=== PATIENT | female | born 2000 | race Two or more races ===

== ENCOUNTER 2024-06-14 16:10 | Emergency (ER) | payer MEDICAID, SELFPAY ==
[2024-06-14 16:17] VITALS: BP 117/84; PULSE 70; RESP 18; TEMP 36.6; O2SAT 98
--- NOTE | 2024-06-14 16:28 | EDNOTE_ITS ---
ED General RME/HPI General Chief complaint: Suicidal Stated complaint: MENTAL EVAL Time Seen by Provider: 06/14/24 16:24 Arrival date/time: 06/14/24 16:10 CC: Suicidal ideation with attempt. HPI patient has been suicidal for weeks, an attempt with cutting her arm x 2. These are partial-thickness lacerations to her left forearm. Patient has a significant history of depression. Seen by psychiatrist. Patient denies physical pain no other complaints at this time. Related Data Previous Rx's ?Medication ?Instructions ?Recorded cephalexin 500 mg capsule 500 mg PO QID #28 caps 05/20 acetaminophen-caffeine 500 mg-65 1 tab PO Q8H PRN pain #30 tabs 10/13/23 mg tablet (Excedrin Tension Headache) docusate sodium 100 mg capsule 100 mg PO BID #30 caps 12/17/23 (Colace) hydrocortisone acetate 25 mg 25 mg DC QDAY #24 ea 12/06 03/31 rectal suppository (Anusol-HC) Allergies Allergy/AdvReac Type Severity Reaction Status Date / Time acetaminophen (From Tylenol) Allergy Mild Vomiting Verified 10/20/20 18:10 quetiapine (From Seroquel) Allergy Mild Vomiting Verified 08/09/23 12:11 Review of Systems Review of Systems Narrative Review of Systems: GEN: No fever, no chills, no weight loss EYES: No discharge, no visual changes, no pain HEENT: No ear pain, no congestion, no sore throat PULM: No shortness of breath, no cough, no congestion CV: No chest pain, no dyspnea on exertion, no palpitations GI: No nausea, no vomiting, no diarrhea, no pain, no constipation : No frequency, no urgency, no dysuria MUSC/SKEL: No joint pain, no back pain SKIN: No rash PSYCH: + depression,+ suicidal ideation with attempt HEME/LYMPH: No easy bleeding or bruising tendencies NEURO: No weakness, no headache Past Medical History Past Medical History CARDIAC: Negative Cardiac Disorders or Congestive Heart Failure RESPIRATORY: Negative Chronic Obstructive Pulmonary Disease (COPD) or Asthma GENITOURINARY: Negative Renal Disease ENDOCRINE: Negative Diabetes Mellitus Type 1 or Diabetes Mellitus Type 2 HEMATOLOGIC: Negative Sickle Cell Disease PSYCHO/SOCIAL: Positive Schizophrenia and Self-Mutilation Social History SMOKING STATUS: Never smoker ED Exam Narrative Physical exam: [General: Not in any acute distress, direct eye contact full sentences nondistracted animated. Head normocephalic HEENT: Within acceptable limits Neck is supple nontender Chest equal chest rise nontender to palpation Respiratory: Clear to auscultation no wheezes crackles or rubs CV: Rate rhythm is regular no murmurs rubs or clicks Abdomen is distended secondary to body habitus soft nontender no masses positive bowel sounds all 4 quadrants Back: No CVA tenderness no spinous process tenderness from cervical spine thoracic and lumbar spine Skin: 2 parallel partial-thickness abrasions to the left forearm. No open bleeding surrounding erythema or edema otherwise skin is intact no petechiae rash induration ulceration or crepitus Extremities: Moving all extremities against resistance cap refill less than 2 seconds neurosensory intact Neuro: Awake alert oriented x3 Glascow coma 15 no focal deficits] Course Quality Measures VTE prophylaxis Orders Category Date Time Status Diet Regular Diet 06/14/24 Dinner Active Alcohol, Urine Stat Lab 06/14/24 16:45 Completed CBC Stat Lab 06/14/24 16:39 Completed CMP [Comprehensive Metabolic Panel] Stat Lab 06/14/24 16:39 Completed Drug Screen,Urine Stat Lab 06/14/24 16:45 Completed HCG Qualitative,Urine Stat Lab 06/14/24 16:45 Completed Urinalysis Stat Lab 06/14/24 16:45 Completed Vital Signs Vital signs: Vital Signs Temperature 97.8 F 06/14/24 16:17 Pulse Rate 70 06/14/24 16:17 Respiratory Rate 18 06/14/24 16:17 Blood Pressure 117/84 06/14/24 16:17 Pulse Oximetry (%) 98 06/14/24 16:17 Oxygen Delivery Method Room Air 06/14/24 16:17 [facility] Patient data External records reviewed:: [facility] [place] previous records Clinical information provided by:: patient Social determinants that could affect healthcare access:: none Patient has the following chronic illnesses:: Depression suicidal ideation How is presenting disease/condition affected by chronic disease/condition?: e xacerbated by Evaluation data The following diagnostics were reviewed and interpreted by me:: lab results and radiology exam(s) Lab and/or radiology exams considered but not ordered:: CBC CMP unremarkable urine is negative for UDS UTI Interpretation Summary: Suicidal ideation suicide attempt severe depression Medications Medications considered but not ordered:: None Medication administrations:: None Consultations Consultation(s) initiated? (list below): No Diagnosis Differential Diagnosis ED Complaint MDM: Suicidal ideation suicide attempt severe depression Most likely diagnosis given after review of the tests above:: Suicidal ideation suicide attempt severe depression Admission Indicated Admission indicated?: indicated Explain why admission is indicated or not indicated:: Transfer Admission Request Was there a request for admission?: No Disposition Plan Disposition Plan: Transfer Medical Decision Making Differential Diagnosis Differential Diagnosis: Suicidal ideation suicide attempt severe depression Lab Data 06/14/24 16:39 06/14/24 16:39 Labs: Lab Results 06/14/24 06/14/24 Range/Units 16:39 16:45 WBC 8.5 (3.6-11.0) Thou/mm3 RBC 4.23 (4.00-5.20) Miln/mm3 Hgb 13.1 (12.0-16.0) g/dL Hct 37.7 (36.0-46.0) % MCV 89 (80-100) fL MCH 31.0 (25.0-35.0) pg MCHC 34.7 (31.0-37.0) g/dl RDW Std Deviation 41.9 (36.4-46.3) fL Plt Count 398 (140-440) Thou/mm3 Neut % (Auto) 65 (37-80) % Lymph % (Auto) 26 (10-50) % [place] % (Auto) 6 (0-12) % Eos % (Auto) 2 (0-10) % Baso % (Auto) 1 (0-2.5) % Neut # (Auto) 5.5 (1.8-7.7) Thou/mm3 Lymph # (Auto) 2.2 (1.0-4.8) Thou/mm3 [place] # (Auto) 0.5 (0.0-0.8) Thou/mm3 Eos # (Auto) 0.2 (0.0-0.5) Thou/mm3 Baso # (Auto) 0.0 (0.0-0.2) Thou/mm3 Immature Gran # (Auto) 0.00 (0.00-0.00) Thou/mm3 Absolute Nucleated RBC 0.00 (0.00-0.00) Thou/mm3 Immature Gran % 0 (0-0) % Nucleated RBC % 0 (0) /100 WBC Sodium 137 (136-145) mMol/L Potassium 4.0 (3.4-5.1) mMol/L Chloride 104 (98-107) mMol/L Carbon Dioxide 26.4 (20.0-31.0) mMol/L Anion Gap 7 (7-16) BUN 13 (9-23) mg/dL Creatinine 0.7 (0.6-1.3) mg/dL Estim Creat Clear Calc 113.4 (>60) mL/min eGFR > 60 (60 - ) See Note BUN/Creatinine Ratio 19 (12-20) Ratio Glucose 104 (74-106) mg/dL Calculated Osmolality 273 L (275-295) Calcium 9.6 (8.3-10.6) mg/dL Corrected Calcium 9.6 (8.5-10.1) mg/dL Total Bilirubin 0.4 (0.3-1.2) mg/dL AST 24 (0-34) U/L ALT 11 (10-49) U/L Alkaline Phosphatase 105 (46-116) U/L Total Protein 7.2 (5.7-8.2) gm/dL Albumin 4.4 (3.5-5.0) gm/dL Globulin 2.8 (2.3-3.5) gm/dL Albumin/Globulin Ratio 1.6 (1.2-2.2) Ur Collection Type Clean Catch Urine Color Yellow (Lt Yel-Yel) Urine Clarity Clear (Clear/Hazy) Urine pH 6.5 (5.0-7.0) Ur Specific [place] 1.019 (1.001-1.035) Urine Protein Negative (Neg - Trace) Urine Glucose (UA) Negative (Negative) Urine Ketones Negative (Negative) Urine Blood Negative (Negative) Urine Nitrite Negative (Negative) Urine Bilirubin Negative (Negative) Urine Urobilinogen (Auto) Negative (0.0-1.0) mg/dL Ur Leukocyte Esterase Positive (Negative) Urine RBC 1 (0-3) /hpf Urine WBC 15 H (0-5) /hpf Ur Squamous Epith Cells 5 (0-5) /hpf Urine Bacteria None (None) Hyaline Casts < 1 (0-1) /hpf Urine HCG, Qual Negative Urine Opiates Screen Negative (Negative) Urine Fentanyl Screen Negative (Negative) Ur Barbiturates Screen Negative (Negative) U Amphetamin/Meth Scrn Negative (Negative) U Benzodiazepines Scrn Negative (Negative) U Cocaine Metab Screen Negative (Negative) U Marijuana (THC) Screen Negative (Negative) Urine Alcohol Negative (Negative) Discharge Plan Plan Patient Disposition: [facility] Patient condition on transfer: Stable Prescriptions/Referrals Prescriptions/Med Rec: No Action cephalexin 500 mg capsule 500 mg PO QID Qty: 28 0RF Excedrin Tension Headache 500-65 mg tablet 1 tab PO Q8H PRN (Reason: pain) Qty: 30 0RF docusate sodium [Colace] 100 mg capsule 100 mg PO BID Qty: 30 0RF hydrocortisone acetate [Anusol-HC] 25 mg suppository 25 mg DC QDAY Qty: 24 0RF Referrals: No Primary/Family,Physician [Primary Care Provider] - In 1 week Problem List Clinical Impression: Suicidal ideation, Suicide attempt, Severe depression Patient/Caregiver Discharge Instructions Print Language: Wolof Stand Alone Forms: Mare Award Info., Patient Portal Info Letter PA/GYNAECOLOGICAL ONCOLOGIST Supervising Physician PA/GYNAECOLOGICAL ONCOLOGIST Supervising Physician: Bryce Jiménez ENP
[2024-06-14 16:41] VITALS: BMI 24.1
[2024-06-14 16:46] LABS: Basophils % (Auto) 1 % (0-2.5); Eosinophils # (Auto) 0.2 Thou/mm3 (0.0-0.5); Eosinophils % (Auto) 2 % (0-10); Hematocrit 37.7 % (36.0-46.0); Hemoglobin 13.1 g/dL (12.0-16.0); Immature Granulocytes % (Auto) 0 % (0-0); Lymphocytes # (Auto) 2.2 Thou/mm3 (1.0-4.8); Lymphocytes % (Auto) 26 % (10-50); Mean Corpuscular HGB Conc 34.7 g/dl (31.0-37.0); Mean Corpuscular Volume 89 fL (80-100); Monocytes # (Auto) 0.5 Thou/mm3 (0.0-0.8); Monocytes % (Auto) 6 % (0-12); Neutrophils # (Auto) 5.5 Thou/mm3 (1.8-7.7); Neutrophils % (Auto) 65 % (37-80); Nucleated Red Blood Cell % 0 /100 WBC (0); Platelet Count 398 Thou/mm3 (140-440); RDW Standard Deviation 41.9 fL (36.4-46.3); Red Blood Count 4.23 Miln/mm3 (4.00-5.20); White Blood Count 8.5 Thou/mm3 (3.6-11.0)
[2024-06-14 16:54] LABS: Collection Type, Urine Clean Catch
[2024-06-14 16:56] LABS: HCG Qualitative,Urine Negative
[2024-06-14 17:01] LABS: Alanine Aminotransferase 11 U/L (10-49); Albumin, Serum 4.4 gm/dL (3.5-5.0); Albumin/Globulin Ratio 1.6 (1.2-2.2); Alkaline Phosphatase 105 U/L (46-116); Anion Gap 7 (7-16); Aspartate Amino Transferase 24 U/L (0-34); BUN/Creatinine Ratio 19 Ratio (12-20); Bilirubin,Total 0.4 mg/dL (0.3-1.2); Blood Urea Nitrogen 13 mg/dL (9-23); Calcium 9.6 mg/dL (8.3-10.6); Calcium (Corrected) 9.6 mg/dL (8.5-10.1); Carbon Dioxide 26.4 mMol/L (20.0-31.0); Chloride 104 mMol/L (98-107); Creatinine (Component) 0.7 mg/dL (0.6-1.3); Estimated Creatinine Clearance 113.4 mL/min (>60); Globulin 2.8 gm/dL (2.3-3.5); Glucose 104 mg/dL (74-106); Osmolality,Calculated 273 (275-295); Sodium 137 mMol/L (136-145); Total Protein 7.2 gm/dL (5.7-8.2); eGFR > 60 See Note
[2024-06-14 17:12] LABS: Bilirubin,Urine Negative (Negative); Blood,Urine Negative (Negative); Clarity,Urine Clear (Clear/Hazy); Color,Urine Yellow (Lt Yel-Yel); Glucose, Urine Negative (Negative); Hyaline Casts,Urine < 1 /hpf (0-1); Ketones,Urine Negative (Negative); Leukocyte Esterase,Urine Positive (Negative); Nitrite,Urine Negative (Negative); PH,Urine 6.5 (5.0-7.0); Protein,Urine Negative (Neg - Trace); RBC,Urine 1 /hpf (0-3); Specific Gravity,Urine 1.019 (1.001-1.035); Squamous Epithelial Cell,Urine 5 /hpf (0-5); Urobilinogen,Urine Negative mg/dL (0.0-1.0); WBC,Urine 15 /hpf (0-5)
--- NOTE | 2024-06-14 17:28 | PC.CC ---
Patient is a 24 year old female who presents to the hospital on a 5150-hold for Danger to Self by [facility] Assessment Services Manager, Lory Hanna. Lan met with patient [id number] to complete assessment. ASW introduced self, role, and reason for assessment. ASW disclosed limits of confidentiality as well. Patient appeared alert and oriented to self, place, and situation. Patient behavior appeared disinhibited with flat affect. Patient?s thought process was linear and organized. No signs of delusions, paranoid or V/h. Patient reports today she went to [facility] as she is connected to them for outpatient mental health services as she was having suicidal ideations and attempted to cut herself with the intention of killing herself. Patient reports she has been having suicidal ideations for two weeks but had not acted on them until today. Patient reports her last suicide attempt was in 2021 and was placed on a 5150-hold. Patient reports she is prescribed psychotropic medications but was unable to provide the named and reports she is compliant with her medications. Patient denied homicidal ideations, visual and auditory hallucinations to this senior underwriter. Per 5150-Hold by Clinician Lory, patient has been having auditory hallucinations, not sleeping, cuts on her arms, and attempted to harm herself yesterday with a hammer. ASW explained the process to the patient of 5150-hold and informed patient that a referral will be sent to [facility] for psychiatric placement. Patient was receptive to this information. ASW provided discharge plan to LPS facility to OMID Jiménez, ops analyst Denise, and bedside DYLON Pete.
[2024-06-14 17:58] VITALS: BP 107/68; PULSE 55; RESP 18; TEMP 36.7; O2SAT 98
--- NOTE | 2024-06-14 18:00 | PC.NURSE ---
PT'S BOYFRIENDS NUMBER
--- NOTE | 2024-06-14 18:10 | PC.NURSE ---
REPORT GIVEN TO MARCELO AT [facility]. PT EXCEPTED TO DR GARAY, UNIT [address] RM [address]. THEY WOULD LIKE PT TO ARRIVE AT 8PM. CALL MARCELO AT [phone] WITH ETA
--- NOTE | 2024-06-14 18:18 | PC.CC ---
Melissa with [facility] provided accepting information for patient. Patient has been accepted by Dr. Tracey into unit 200 Room 217B. Katina PAPPAS provided accepting information to patient. Patient was receptive to information. Katina PAPPAS provided updated information to Dr. Telles, OMID Jiménez, functional mental disability teacher Lyn, and Bedside RN Juan R. ETA p/u 2029 with [facility].
[2024-06-14 18:53] LABS: Alcohol, Urine Negative (Negative); Amphetamine/Methamp Scrn,U Negative (Negative); Barbiturate Screen,Urine Negative (Negative); Benzodiazepines Screen,Urine Negative (Negative); Benzoylecgonine Screen, Ur Negative (Negative); Fentanyl Screen,Urine Negative (Negative); Opiate Screen,Urine Negative (Negative); THC Screen,Urine Negative (Negative)
[2024-06-14 20:35] VITALS: BP 127/86; PULSE 69; RESP 18; TEMP 36.7; O2SAT 98
--- NOTE | 2024-06-14 20:36 | PC.NURSE ---
Report given to Angelita ngo [facility]
== END 2024-06-14 20:47 ==
PROVIDERS: Registered Nurse General Practice; Emergency Provider Emergency Medicine
DX: S51.812A Laceration without foreign body of left forearm, initial encounter (principal); X78.9XXA Intentional self-harm by unspecified sharp object, initial encounter; F32.A Depression, unspecified; F20.9 Schizophrenia, unspecified
CPT/HCPCS: 36415; 80053; 80307; 80320; 81001; 81025; 85025; 90839; 96127; 99285; G0480

== ENCOUNTER 2024-06-27 08:56 | Emergency (ER) | payer MEDICAID, SELFPAY ==
[2024-06-27 09:17] VITALS: BP 117/76; PULSE 59; RESP 17; TEMP 36.7; O2SAT 97
--- NOTE | 2024-06-27 09:43 | EDNOTE_ITS ---
ED Headache RME/HPI General Chief Complaint: Headache Stated Complaint: SUDDEN HEADACHE AT GYM; LIFTING TOO MUCH WT. Time Seen by Provider: 06/27/24 09:19 Source: patient Arrival date/time: 06/27/24 08:56 24-year-old female with no known medical history presents to the emergency room with a chief complaint of a headache that occurred while lifting weights at the gym 1 hour ago Mode of arrival: ambulatory Limitations: no limitations Related Data Previous Rx's ?Medication ?Instructions ?Recorded cephalexin 500 mg capsule 500 mg PO QID #28 caps 05/20 acetaminophen-caffeine 500 mg-65 1 tab PO Q8H PRN pain #30 tabs 10/13/23 mg tablet (Excedrin Tension Headache) docusate sodium 100 mg capsule 100 mg PO BID #30 caps 12/17/23 (Colace) hydrocortisone acetate 25 mg 25 mg [place] QDAY #24 ea 12/06 03/31 rectal suppository (Anusol-HC) Allergies Allergy/AdvReac Type Severity Reaction Status Date / Time acetaminophen (From Tylenol) Allergy Mild Vomiting Verified 06/27/24 09:00 quetiapine (From Seroquel) Allergy Mild Vomiting Verified 06/27/24 09:00 Review of Systems Review of Systems Systems Reviewed: All systems reviewed, normal except as documented Constitutional Constitutional: Reports system reviewed and no additional complaints, except as documented, Denies fatigue, Denies fever(s), Reports headache(s) and Denies weakness Eyes Eyes: Reports system reviewed and no additional complaints, except as documented, Denies blurry vision and Denies change in vision ENT Ears, Nose, Mouth, and Throat: Reports system reviewed and no additional complaints, except as documented, Denies otalgia, Reports headache(s), Denies nasal congestion, Denies throat swelling and Denies vertigo Cardiovascular Cardiovascular: Reports system reviewed and no additional complaints, except as documented, Denies chest pain, Denies dyspnea and Denies dyspnea on exertion Respiratory Respiratory: Reports system reviewed and no additional complaints, except as documented, Denies chest congestion, Denies cough, Denies dyspnea, Denies dyspnea on exertion and Denies wheezing Gastrointestinal Gastrointestinal: Reports system reviewed and no additional complaints, except as documented, Denies abdominal pain, Denies cramping, Denies nausea and Denies vomiting Genitourinary Genitourinary: Reports system reviewed and no additional complaints, except as documented Musculoskeletal Musculoskeletal: Reports system reviewed and no additional complaints, except as documented and Denies back pain Integumentary/Breasts Skin/Breast: Reports system reviewed and no additional complaints, except as documented and Denies wounds Neurologic Neurologic: Reports system reviewed and no additional complaints, except as documented, Denies confusion, Reports headache(s), Denies lack of coordination, Denies vertigo and Denies weakness Psychiatric Psychiatric: Reports system reviewed and no additional complaints, except as documented, Denies anxiety, Denies confusion, Denies depression, Denies paranoia, Denies suicidal ideation and Denies tactile hallucinations Endocrine Endocrine: Reports system reviewed and no additional complaints, except as documented and Denies fatigue Hematologic/Lymphatic Hematologic/Lymphatic: Reports system reviewed and no additional complaints, except as documented and Denies lymphadenopathy Allergic/Immunologic Allergic/Immunologic: Reports system reviewed and no additional complaints, except as documented, Denies throat swelling, Denies urticaria and Denies wheezing Past Medical History Past Medical History CARDIAC: Negative Cardiac Disorders or Congestive Heart Failure RESPIRATORY: Negative Chronic Obstructive Pulmonary Disease (COPD) or Asthma GENITOURINARY: Negative Renal Disease ENDOCRINE: Negative Diabetes Mellitus Type 1 or Diabetes Mellitus Type 2 HEMATOLOGIC: Negative Sickle Cell Disease PSYCHO/SOCIAL: Positive Schizophrenia, Depression and Self-Mutilation Social History SMOKING STATUS: Current every day smoker ED Exam General Limitations: Present no limitations General appearance: Present alert and in no apparent distress Head Head exam: Present atraumatic, normocephalic and normal inspection Eye Eye exam: Present normal appearance, PERRL and EOMI ENT ENT exam: Present normal exam, normal oropharynx and mucous membranes moist Neck Neck exam: Present normal inspection, full ROM and trachea midline Chest Chest inspection: Present normal inspection and symmetric chest wall rise Respiratory Respiratory exam: Present normal lung sounds bilaterally Cardiovascular Cardiovascular exam: Present regular rate, normal rhythm and normal heart sounds Abdominal Exam Abdominal exam: Present soft and normal bowel sounds Extremities Exam Extremities exam: Present normal inspection and full ROM Back Exam Back exam: Present normal inspection and full ROM Neurological Exam Neurological exam: Present alert, oriented X3, CN II-XII intact, normal gait and reflexes normal Expanded Neurological Exam Patient oriented to: Present person, place and time Speech: Present fluid speech Cranial nerves: Normal: EOM function (II, III, IV, ), facial sensation (V) and facial palsy (VII) Cerebellar function: Normal: finger to nose Cerebellar function: Present normal gait Motor strength - LUE: 5/5 Motor strength - RUE: 5/5 Motor strength - LLE: 5/5 Motor strength - RLE: 5/5 Coma scale eye opening: spontaneous Coma scale motor response: obeys commands Coma scale verbal response: oriented Coma scale total: 15 Psychiatric Psychiatric exam: Present normal affect and normal mood Skin Skin exam: Present warm, dry, intact and normal color Course Quality Measures none Orders Category Date Time Status DiphenhydrAMINE [Benadryl] Med 06/27/24 09:41 Discontinued 25 mg PO X1 ONE Ketorolac Inj [Toradol Inj] Med 06/27/24 09:41 Discontinued 30 mg IM X1 ONE SUMAtriptan INJ [Imitrex Inj] Med 06/27/24 09:41 Discontinued 6 mg SC X1 ONE Vital Signs Vital signs: Vital Signs Temperature 98.0 F 06/27/24 09:17 Pulse Rate 59 L 06/27/24 09:17 Respiratory Rate 17 06/27/24 09:17 Blood Pressure 117/76 06/27/24 09:17 Pulse Oximetry (%) 97 06/27/24 09:17 Oxygen Delivery Method Room Air 06/27/24 09:17 Headache MDM Narrative MDM Narrative:: 24-year-old female with no known medical history presents to the emergency room with a chief complaint of a headache that occurred while lifting weights at the gym 1 hour ago Patient is hemodynamically stable and in no apparent distress Physical examination shows a normal neurological exam. Pupils are PERRLA EOMs are intact. Patient is a GCS of 15 alert and oriented x 3. Medication was ordered but prior to giving the medication patient eloped Patient data External records reviewed:: [facility] previous records Clinical information provided by:: patient Social determinants that could affect healthcare access:: none Patient has the following chronic illnesses:: No chronic illness How is presenting disease/condition affected by chronic disease/condition?: no chronic disease Evaluation data The following diagnostics were reviewed and interpreted by me:: lab results and radiology exam(s) Lab and/or radiology exams considered but not ordered:: Labs and radiology exams considered and ordered Interpretation Summary: N/A Medications / Prescriptions Medications or Prescriptions considered but not ordered:: Medication given Medication administrations:: Medication Administration History Discontinued Medications Diphenhydramine HCl (Diphenhydramine 25 Mg Capsule) 25 mg PO X1 ONE Stop: 06/27/24 09:42 Ketorolac Tromethamine (Ketorolac Inj 60 Mg/2 Ml Vial) 30 mg IM X1 ONE Stop: 06/27/24 09:42 Sumatriptan Succinate (Sumatriptan Inj 6 Mg/0.5 Ml Vial) 6 mg SC X1 ONE Stop: 06/27/24 09:42 Medication given Consultations Consultation(s) initiated? (list below): No Diagnosis Differential diagnosis headache: migraine, tension headache and headache Most likely diagnosis given after review of the tests above:: Headache Admission Indicated Admission indicated?: not indicated Admission Request Was there a request for admission?: No Disposition Plan Disposition Plan: Discharge Discharge Attestation Discharge Attestation: The patient and all family members were given an opportunity to ask questions and understood the discharge instructions. Discharge instructions specifically effects, indications for sooner follow up or return to the emergency department, and the expected course of current diagnosis. Patient condition: Stable Discharge Plan Plan Patient Disposition: Elopement Disposition Comment: Stable Prescriptions/Referrals Prescriptions/Med Rec: No Action cephalexin 500 mg capsule 500 mg PO QID Qty: 28 0RF Excedrin Tension Headache 500-65 mg tablet 1 tab PO Q8H PRN (Reason: pain) Qty: 30 0RF docusate sodium [Colace] 100 mg capsule 100 mg PO BID Qty: 30 0RF hydrocortisone acetate [Anusol-HC] 25 mg suppository 25 mg [place] QDAY Qty: 24 0RF Referrals: No Primary/Family,Physician [Primary Care Provider] - In 1 week Problem List Clinical Impression: Headache Patient/Caregiver Discharge Instructions Print Language: Maltese
--- NOTE | 2024-06-27 10:28 | PC.NURSE ---
NO ANSWER FOR MEDS
--- NOTE | 2024-06-27 10:45 | PC.NURSE ---
NO ANSWER FOR MEDS
--- NOTE | 2024-06-27 11:04 | PC.NURSE ---
NO ANSWER FOR MEDS
== END 2024-06-27 11:05 | disposition left against medical advice (07) ==
LOC: SERX 11:06
PROVIDERS: Emergency Provider Family Medicine
DX: R51.9 Headache, unspecified (principal); Z53.29 Procedure and treatment not carried out because of patient's decision for other reasons
CPT/HCPCS: 99281

== ENCOUNTER 2024-07-25 14:01 | Emergency (ER) | payer MEDICAID, SELFPAY ==
[2024-07-25 14:05] VITALS: PULSE 82; RESP 18; O2SAT 97; BMI 24.1
[2024-07-25 14:14] VITALS: BP 96/60; PULSE 80; RESP 18; TEMP 36.9; O2SAT 99
--- NOTE | 2024-07-25 14:19 | XR_ITS ---
Examination: Hand, right 3 views Technique: Hand AP, oblique, lateral 3 views Date and time of exam: July 25, 2024 1538 hours INDICATIONS: Patient fell today with injury to the hand, hand pain FINDINGS: No acute fracture No dislocation No foreign body IMPRESSION: No acute fracture
--- NOTE | 2024-07-25 15:42 | PD.EDUPEX ---
Upper Extremity Injury RME/HPI General Chief Complaint: Fall Stated Complaint: FALL, RIGHT HAND PAIN Time Seen by Provider: 07/25/24 14:15 Arrival date/time: 07/25/24 14:01 24-year-old female presents to the emergency department today states she had a ground-level fall patient reports right sided hand pain and abrasions patient does report tetanus up-to-date Limitations: no limitations Related Data Previous Rx's ?Medication ?Instructions ?Recorded cephalexin 500 mg capsule 500 mg PO QID #28 caps 05/21/23 acetaminophen-caffeine 500 mg-65 1 tab PO Q8H PRN pain #30 tabs 10/13/23 mg tablet (Excedrin Tension Headache) docusate sodium 100 mg capsule 100 mg PO BID #30 caps 12/17/23 (Colace) hydrocortisone acetate 25 mg 25 mg [place] QDAY #24 ea 12/17/23 rectal suppository (Anusol-HC) ibuprofen 600 mg tablet 600 mg PO Q8H PRN pain #20 tabs 07/25/24 Allergies Allergy/AdvReac Type Severity Reaction Status Date / Time acetaminophen (From Tylenol) Allergy Mild Vomiting Verified 07/25/24 14:08 quetiapine (From Seroquel) Allergy Mild Vomiting Verified 07/25/24 14:08 Review of Systems Review of Systems Systems Reviewed: All systems reviewed, normal except as documented Constitutional Constitutional: Reports system reviewed and no additional complaints, except as documented, Denies fever(s) and Denies headache(s) Eyes Eyes: Reports system reviewed and no additional complaints, except as documented and Denies blurry vision ENT Ears, Nose, Mouth, and Throat: Reports system reviewed and no additional complaints, except as documented, Denies headache(s), Denies nasal congestion and Denies nasal discharge Cardiovascular Cardiovascular: Reports system reviewed and no additional complaints, except as documented, Denies chest pain and Denies dyspnea Respiratory Respiratory: Reports system reviewed and no additional complaints, except as documented, Denies chest congestion, Denies cough and Denies dyspnea Gastrointestinal Gastrointestinal: Reports system reviewed and no additional complaints, except as documented and Denies abdominal pain Musculoskeletal Musculoskeletal: Reports system reviewed and no additional complaints, except as documented, Reports arthralgias, Denies deformity, Denies joint swelling, Denies numbness, Reports stiffness and Denies tingling Integumentary/Breasts Skin/Breast: Reports system reviewed and no additional complaints, except as documented and Denies rash Neurologic Neurologic: Reports system reviewed and no additional complaints, except as documented, Reports as per HPI, Denies headache(s), Denies numbness and Denies tingling Past Medical History Past Medical History CARDIAC: Negative Cardiac Disorders or Congestive Heart Failure RESPIRATORY: Negative Chronic Obstructive Pulmonary Disease (COPD) or Asthma GENITOURINARY: Negative Renal Disease ENDOCRINE: Negative Diabetes Mellitus Type 1 or Diabetes Mellitus Type 2 HEMATOLOGIC: Negative Sickle Cell Disease PSYCHO/SOCIAL: Positive Schizophrenia, Depression and Self-Mutilation Social History SMOKING STATUS: Former smoker ED Exam General Limitations: Present no limitations General appearance: Present alert and in no apparent distress Head Head exam: Present atraumatic Eye Eye exam: Present normal appearance, PERRL and EOMI ENT ENT exam: Present normal exam, normal oropharynx and mucous membranes moist Neck Neck exam: Present normal inspection, full ROM and trachea midline Chest Chest inspection: Present normal inspection and symmetric chest wall rise Respiratory Respiratory exam: Present normal lung sounds bilaterally Cardiovascular Cardiovascular exam: Present regular rate, normal rhythm and normal heart sounds Abdominal Exam Abdominal exam: Present soft and normal bowel sounds Extremities Exam Extremities exam: Present full ROM, tenderness and normal capillary refill; Absent joint swelling Back Exam Back exam: Present normal inspection and full ROM Neurological Exam Neurological exam: Present alert, oriented X3 and CN II-XII intact Psychiatric Psychiatric exam: Present normal affect and normal mood Skin Skin exam: Present warm, dry, intact and normal color Course Quality Measures none Orders Category Date Time Status Wound Care NOW Care 07/25/24 14:20 Completed XR hand comp RT min 3V Stat Exams 07/25/24 14:19 Completed Vital Signs Vital signs: Vital Signs Temperature 98.5 F 07/25/24 14:14 Pulse Rate 80 07/25/24 14:14 Respiratory Rate 18 07/25/24 14:14 Blood Pressure 96/60 07/25/24 14:14 Pulse Oximetry (%) 99 07/25/24 14:14 Oxygen Delivery Method Room Air 07/25/24 14:14 O2 saturation 99% room air within normal limits Extremity Injury MDM Narrative MDM Narrative:: 24-year-old female presents to the emergency department today states she had a ground-level fall patient reports right sided hand pain and abrasions patient does report tetanus up-to-date On exam patient has abrasions to the right hand patient does have full range of motion of all digits no evidence of tendon or ligamentous injury Imaging obtained no acute emergent findings noted Patient discharged home in no distress to follow-up with primary care doctor in the next 24 to 48 hours and for any worsening symptoms to return to the ER immediately Patient data External records reviewed:: [facility] previous records Clinical information provided by:: patient Social determinants that could affect healthcare access:: none Patient has the following chronic illnesses:: None How is presenting disease/condition affected by chronic disease/condition?: no chronic disease Evaluation data The following diagnostics were reviewed and interpreted by me:: radiology exam(s) Lab and/or radiology exams considered but not ordered:: Radiology obtain Interpretation Summary: Reviewed by me Medications / Prescriptions Medications or Prescriptions considered but not ordered:: Given Medication administrations:: Given Consultations Consultation(s) initiated? (list below): No Diagnosis Upper Extremity Injury Differential Diagnosis: other (Hand sprain, hand fracture, abrasion hand) Most likely diagnosis given after review of the tests above:: Abrasion hand, hand contusion Admission Indicated Admission indicated?: not indicated Admission Request Was there a request for admission?: No Disposition Plan Disposition Plan: Discharge Discharge Attestation Discharge Attestation: The patient and all family members were given an opportunity to ask questions and understood the discharge instructions. Discharge instructions specifically effects, indications for sooner follow up or return to the emergency department, and the expected course of current diagnosis. Patient condition: Stable Discharge Plan Plan Patient Disposition: HOME (Self Care) Discharge Disposition comment: Stable Prescriptions/Referrals Prescriptions/Med Rec: New ibuprofen 600 mg tablet 600 mg PO Q8H PRN (Reason: pain) Qty: 20 0RF No Action cephalexin 500 mg capsule 500 mg PO QID Qty: 28 0RF Excedrin Tension Headache 500-65 mg tablet 1 tab PO Q8H PRN (Reason: pain) Qty: 30 0RF docusate sodium [Colace] 100 mg capsule 100 mg PO BID Qty: 30 0RF hydrocortisone acetate [Anusol-HC] 25 mg suppository 25 mg NJ QDAY Qty: 24 0RF Problem List Clinical Impression: Hand pain, right Patient/Caregiver Discharge Instructions Education Materials: RICE Additional Instructions: Please follow up with your primary care doctor in the next 24-48hrs for any worsening symptoms return here immediately Print Language: Guyanese Stand Alone Forms: Mare Award Info., Work/School Release, Patient Portal Info Letter PA/DISPATCHER MAINTENANCE Supervising Physician PA/DISPATCHER MAINTENANCE Supervising Physician: Dr. belcher
== END 2024-07-25 16:05 | disposition home or self-care (01) ==
LOC: SERX 15:46
PROVIDERS: Emergency Provider Emergency Medicine
DX: M79.641 Pain in right hand (principal)
CPT/HCPCS: 73130; 99283

== ENCOUNTER 2025-01-19 05:44 | Emergency (ER) | payer MEDICAID, SELFPAY ==
[2025-01-19 05:45] VITALS: BP 123/80; PULSE 110; RESP 18; TEMP 36.6; O2SAT 96
--- NOTE | 2025-01-19 06:21 | EDNOTE_ITS ---
ED Dental RME/HPI General Chief complaint: Dental/Oral/Throat Stated complaint: sore throat for 5 days Time Seen by Provider: 01/19/25 06:11 Source: patient Arrival date/time: 01/19/25 05:44 24-year-old female with no known medical history presents to the emergency room with a chief complaint of sore throat and fever x 5 days Mode of arrival: ambulatory Limitations: no limitations Related Data Previous Rx's ?Medication ?Instructions ?Recorded cephalexin 500 mg capsule 500 mg PO QID #28 caps 05/20 acetaminophen-caffeine 500 mg-65 1 tab PO Q8H PRN pain #30 tabs 10/13/23 mg tablet (Excedrin Tension Headache) docusate sodium 100 mg capsule 100 mg PO BID #30 caps 12/17/23 (Colace) hydrocortisone acetate 25 mg 25 mg [place] QDAY #24 ea 12/06 03/31 rectal suppository (Anusol-HC) ibuprofen 600 mg tablet 600 mg PO Q8H PRN pain #20 t abs 07/25/24 amoxicillin 875 mg-potassium 1 tab PO BID 7 days #14 t abs 01/19/25 clavulanate 125 mg tablet Allergies Allergy/AdvReac Type Severity Reaction Status Date / Time acetaminophen (From Tylenol) Allergy Mild Vomiting Verified 07/25/24 14:08 quetiapine (From Seroquel) Allergy Mild Vomiting Verified 07/25/24 14:08 Review of Systems Review of Systems Systems Reviewed: All systems reviewed, normal except as documented Constitutional Constitutional: Reports system reviewed and no additional complaints, except as documented, Denies fatigue, Reports fever(s), Denies headache(s) and Denies weakness Eyes Eyes: Reports system reviewed and no additional complaints, except as document ed, Denies blurry vision and Denies change in vision ENT Ears, Nose, Mouth, and Throat: Reports system reviewed and no additional complaints, except as documented, Denies otalgia, Denies headache(s), Denies nasal congestion, Reports sore throat, Denies throat swelling and Denies vertigo Cardiovascular Cardiovascular: Reports system reviewed and no additional complaints, except as documented, Denies chest pain, Denies dyspnea and Denies dyspnea on exertion Respiratory Respiratory: Reports system reviewed and no additional complaints, except as documented, Denies chest congestion, Denies cough, Denies dyspnea, Denies dyspnea on exertion and Denies wheezing Gastrointestinal Gastrointestinal: Reports system reviewed and no additional complaints, except as documented, Denies abdominal pain, Denies cramping, Denies nausea and Denies vomiting Genitourinary Genitourinary: Reports system reviewed and no additional complaints, except as documented Musculoskeletal Musculoskeletal: Reports system reviewed and no additional complaints, except as documented and Denies back pain Integumentary/Breasts Skin/Breast: Reports system reviewed and no additional complaints, except as documented and Denies wounds Neurologic Neurologic: Reports system reviewed and no additional complaints, except as documented, Denies confusion, Denies headache(s), Denies lack of coordination, Denies vertigo and Denies weakness Psychiatric Psychiatric: Reports system reviewed and no additional complaints, except as documented, Denies anxiety, Denies confusion, Denies depression, Denies paranoia, Denies suicidal ideation and Denies tactile hallucinations Endocrine Endocrine: Reports system reviewed and no additional complaints, except as documented and Denies fatigue Hematologic/Lymphatic Hematologic/Lymphatic: Reports system reviewed and no additional complaints, except as documented and Denies lymphadenopathy Allergic/Immunologic Allergic/Immunologic: Reports system reviewed and no additional complaints, except as documented, Denies throat swelling, Denies urticaria and Denies wheezing Past Medical History Past Medical History CARDIAC: Negative Cardiac Disorders or Congestive Heart Failure RESPIRATORY: Negative Chronic Obstructive Pulmonary Disease (COPD) or Asthma GENITOURINARY: Negative Renal Disease ENDOCRINE: Negative Diabetes Mellitus Type 1 or Diabetes Mellitus Type 2 HEMATOLOGIC: Negative Sickle Cell Disease PSYCHO/SOCIAL: Positive Schizophrenia, Depression and Self-Mutilation Social History SMOKING STATUS: Never smoker ED Exam General Limitations: Present no limitations General appearance: Present alert and in no apparent distress Head Head exam: Present atraumatic Eye Eye exam: Present normal appearance, PERRL and EOMI ENT ENT exam: Present normal exam, normal oropharynx and mucous membranes moist Expanded ENT Exam Mouth exam: Absent trismus Teeth exam: Present normal inspection Throat exam: Present tonsillar erythema and tonsillar exudate; Absent tonsillomegaly, R peritonsillar mass, L peritonsillar mass or muffled voice Neck Neck exam: Present normal inspection, full ROM and trachea midline Chest Chest inspection: Present normal inspection and symmetric chest wall rise Respiratory Respiratory exam: Present normal lung sounds bilaterally Cardiovascular Cardiovascular exam: Present regular rate, normal rhythm and normal heart sounds Abdominal Exam Abdominal exam: Present soft and normal bowel sounds Extremities Exam Extremities exam: Present normal inspection and full ROM Back Exam Back exam: Present normal inspection and full ROM Neurological Exam Neurological exam: Present alert, oriented X3 and CN II-XII intact Psychiatric Psychiatric exam: Present normal affect and normal mood Skin Skin exam: Present warm, dry, intact and normal color Course Quality Measures none Vital Signs Vital signs: Vital Signs Temperature 97.9 F 01/19/25 05:45 Pulse Rate 110 H 01/19/25 05:45 Respiratory Rate 18 01/19/25 05:45 Blood Pressure 123/80 01/19/25 05:45 Pulse Oximetry (%) 96 01/19/25 05:45 Oxygen Delivery Method Room Air 01/19/25 05:45 Dental / Oral MDM Narrative MDM Narrative:: 24-year-old female with no known medical history presents to the emergency room with a chief complaint of sore throat and fever x 5 days Patient is hemodynamically stable and in no apparent distress. Patient is afebrile Physical examination shows an erythemic posterior pharynx there is some tonsillar exudates to the left tonsillar pillar. The findings are consistent with pharyngitis. Antibiotic was sent to her patient's pharmacy Patient was discharged and educated to follow-up with primary care provider in the next 24 to 48 hours and return to the emergency room for any evidence of worsening signs or symptoms Patient data External records reviewed:: [facility] previous records Clinical information provided by:: patient Social determinants that could affect healthcare access:: none Patient has the following chronic illnesses:: No chronic illness How is presenting disease/condition affected by chronic disease/condition?: no chronic disease Evaluation data The following diagnostics were reviewed and interpreted by me:: lab results and radiology exam(s) Lab and/or radiology exams considered but not ordered:: Labs and radiology exams considered and ordered Interpretation Summary: N/A Medications / Prescriptions Medications or Prescriptions considered but not ordered:: Rx given Medication administrations:: Rx given Consultations Consultation(s) initiated? (list below): No Diagnosis Dental Differential Diagnosis: other (Pharyngitis/URI/[employer]) Most likely diagnosis given after review of the tests above:: Pharyngitis Admission Indicated Admission indicated?: not indicated Admission Request Was there a request for admission?: No Disposition Plan Disposition Plan: Discharge Discharge Attestation Discharge Attestation: The patient and all family members were given an opportunity to ask questions and understood the discharge instructions. Discharge instructions specifically effects, indications for sooner follow up or return to the emergency department, and the expected course of current diagnosis. Patient condition: Stable Discharge Plan Plan Patient Disposition: HOME (Self Care) Discharge Disposition comment: Stable Prescriptions/Referrals Prescriptions/Med Rec: New amoxicillin-pot clavulanate 875-125 mg tablet 1 tab PO BID 7 Days Qty: 14 0RF No Action cephalexin 500 mg capsule 500 mg PO QID Qty: 28 0RF Excedrin Tension Headache 500-65 mg tablet 1 tab PO Q8H PRN (Reason: pain) Qty: 30 0RF docusate sodium [Colace] 100 mg capsule 100 mg PO BID Qty: 30 0RF hydrocortisone acetate [Anusol-HC] 25 mg suppository 25 mg MS QDAY Qty: 24 0RF ibuprofen 600 mg tablet 600 mg PO Q8H PRN (Reason: pain) Qty: 20 0RF Problem List Clinical Impression: Pharyngitis Patient/Caregiver Discharge Instructions Discharge Activity: activity as tolerated Education Materials: When You Have a Sore Throat, Self-Care for Sore Throats Additional Instructions: Please follow-up with your primary care provider in the next 24 to 48 hours Antibiotics are sent to your pharmacy please pick them up and take them as indicated For any evidence of worsening signs or symptoms return to the emergency room immediately Print Language: [place] African Stand Alone Forms: Mare Award Info., Patient Portal Info Letter PA/EMPLOYEE DEVELOPMENT DIRECTOR Supervising Physician PA/EMPLOYEE DEVELOPMENT DIRECTOR Supervising Physician: Dr. Garcia
== END 2025-01-19 06:30 | disposition home or self-care (01) ==
LOC: SERX 07:09
PROVIDERS: Emergency Provider Family Medicine
DX: J02.9 Acute pharyngitis, unspecified (principal)
CPT/HCPCS: 99281

== ENCOUNTER 2025-01-24 19:36 | Emergency (ER) | payer MEDICAID, SELFPAY ==
[2025-01-24 19:45] VITALS: BP 135/82; PULSE 82; RESP 20; TEMP 36.9; O2SAT 95
--- NOTE | 2025-01-24 20:22 | XR_ITS ---
EXAMINATION: Lumbar spine 2 views TECHNIQUE: AP lateral lumbar spine 2 views Date and time: January 24, 2025, 2054 hours INDICATIONS: Lifting weights today patient felt a pop in the back followed by pain FINDINGS: Satisfactory alignment lumbar vertebral bodies No lumbar fracture Mild disc narrowing L5-S1 IMPRESSION: Mild disc narrowing L5-S1
--- NOTE | 2025-01-24 20:23 | EDNOTE_ITS ---
ED Back Injury Pain RME/HPI General Chief Complaint: Back Pain/Injury Stated Complaint: low back pain/injury Time Seen by Provider: 01/24/25 20:05 Arrival date/time: 01/24/25 19:36 24-year-old female reports with complaints of lower back pain. Patient states while at the gym she pulled quickly and felt a sharp pain in her back. Patient says since then she is unable to bend forward or lift her legs but she denies numbness or tingling decreased range of motion in the lower extremities or changes in bowel or bladder habits. Patient denies taking any medications for symptoms and denies chance of Limitations: no limitations Related Data Previous Rx's ?Medication ?Instructions ?Recorded cephalexin 500 mg capsule 500 mg PO QID #28 caps 05/20 acetaminophen-caffeine 500 mg-65 1 tab PO Q8H PRN pain #30 tabs 10/13/23 mg tablet (Excedrin Tension Headache) docusate sodium 100 mg capsule 100 mg PO BID #30 caps 12/17/23 (Colace) hydrocortisone acetate 25 mg 25 mg ME QDAY #24 ea 12/06 03/31 rectal suppository (Anusol-HC) ibuprofen 600 mg tablet 600 mg PO Q8H PRN pain #20 t abs 07/25/24 amoxicillin 875 mg-potassium 1 tab PO BID 7 days #14 t abs 01/19/25 clavulanate 125 mg tablet meloxicam 7.5 mg tablet 7.5 mg PO QDAY #30 tabs 01/06 11/30 Allergies Allergy/AdvReac Type Severity Reaction Status Date / Time acetaminophen (From Tylenol) Allergy Mild Vomiting Verified 01/24/25 19:40 quetiapine (From Seroquel) Allergy Mild Vomiting Verified 01/24/25 19:40 Review of Systems Cardiovascular Cardiovascular: Denies chest pain and Denies dyspnea Respiratory Respiratory: Denies cough and Denies dyspnea Gastrointestinal Gastrointestinal: Denies change in bowel habits and Denies loose stools Genitourinary Genitourinary: Denies hematuria and Denies urinary incontinence Musculoskeletal Musculoskeletal: Reports back pain, Denies deformity, Denies numbness and Denies tingling Integumentary/Breasts Skin/Breast: Denies unusual bruising and Denies wounds Neurologic Neurologic: Denies numbness and Denies tingling Past Medical History Past Medical History CARDIAC: Negative Cardiac Disorders or Congestive Heart Failure RESPIRATORY: Negative Chronic Obstructive Pulmonary Disease (COPD) or Asthma GENITOURINARY: Negative Renal Disease ENDOCRINE: Negative Diabetes Mellitus Type 1 or Diabetes Mellitus Type 2 HEMATOLOGIC: Negative Sickle Cell Disease PSYCHO/SOCIAL: Positive Schizophrenia, Depression and Self-Mutilation Social History SMOKING STATUS: Never smoker ED Exam General Limitations: Present no limitations General appearance: Present alert and in no apparent distress Chest Chest inspection: Present normal inspection and symmetric chest wall rise Respiratory Respiratory exam: Present normal lung sounds bilaterally Cardiovascular Cardiovascular exam: Present regular rate, normal rhythm and normal heart sounds Abdominal Exam Abdominal exam: Present soft and normal bowel sounds Extremities Exam Extremities exam: Present normal inspection and full ROM Expanded Lower Extremity Exam Hip/Pelvis exam: Present normal inspection and full ROM Upper leg exam: Present normal inspection and full ROM Knee exam: Present normal inspection and full ROM Lower leg exam: Present normal inspection and full ROM Ankle exam: Present normal inspection and full ROM Foot/toe exam: Present normal inspection and full ROM Neurovascular/Tendon exam: Present normal capillary refill; Absent pulse deficit or motor deficit Gait: antalgic Back Exam Back exam: Present normal inspection, full ROM, tenderness (L5-S1 extending along sciatic nerve to mid right buttock), straight leg raise (R) and straight leg raise (L); Absent CVA tenderness (R), CVA tenderness (L) or muscle spasm Neurological Exam Neurological exam: Present alert, oriented X3 and CN II-XII intact Psychiatric Psychiatric exam: Present normal affect and normal mood Skin Skin exam: Present warm, dry, intact and normal color Course Quality Measures none Orders Category Date Time Status XR lumbar spine 2-3V Stat Exams 01/24/25 20:22 Taken HCG Qualitative,Urine Stat Lab 01/24/25 20:37 Completed Ketorolac Inj [Toradol Inj] Med 01/24/25 20:56 Once 60 mg IM X1 ONE Vital Signs Vital signs: Vital Signs Temperature 98.5 F 01/24/25 19:45 Pulse Rate 82 01/24/25 19:45 Respiratory Rate 20 01/24/25 19:45 Blood Pressure 135/82 H 01/24/25 19:45 Pulse Oximetry (%) 95 01/24/25 19:45 Oxygen Delivery Method Room Air 01/24/25 19:45 Back Pain / Injury Patient data External records reviewed:: None Clinical information provided by:: patient Social determinants that could affect healthcare access:: none Patient has the following chronic illnesses:: none How is presenting disease/condition affected by chronic disease/condition?: no chronic disease Evaluation data The following diagnostics were reviewed and interpreted by me:: lab results and radiology exam(s) Lab and/or radiology exams considered but not ordered:: none Interpretation Summary: Negative for evidence of spine derangements Medications / Prescriptions Medications or Prescriptions considered but not ordered:: None Medication administrations:: Medication Administration History Ketorolac Tromethamine (Ketorolac Inj 60 Mg/2 Ml Vial) 60 mg IM X1 ONE Stop: 01/24/25 20:57 As above Consultations Consultation(s) initiated? (list below): No Diagnosis Most likely diagnosis given after review of the tests above:: Lumbar strain Admission Indicated Admission indicated?: not indicated Admission Request Was there a request for admission?: No Disposition Plan Disposition Plan: Discharge Discharge Attestation Discharge Attestation: The patient and all family members were given an opportunity to ask questions and understood the discharge instructions. Discharge instructions specifically effects, indications for sooner follow up or return to the emergency department, and the expected course of current diagnosis. Patient condition: Stable Discharge Plan Plan Patient Disposition: HOME (Self Care) Prescriptions/Referrals Prescriptions/Med Rec: New meloxicam 7.5 mg tablet 7.5 mg PO QDAY Qty: 30 0RF No Action cephalexin 500 mg capsule 500 mg PO QID Qty: 28 0RF Excedrin Tension Headache 500-65 mg tablet 1 tab PO Q8H PRN (Reason: pain) Qty: 30 0RF amoxicillin-pot clavulanate 875-125 mg tablet 1 tab PO BID 7 Days Qty: 14 0RF docusate sodium [Colace] 100 mg capsule 100 mg PO BID Qty: 30 0RF hydrocortisone acetate [Anusol-HC] 25 mg suppository 25 mg ME QDAY Qty: 24 0RF ibuprofen 600 mg tablet 600 mg PO Q8H PRN (Reason: pain) Qty: 20 0RF Referrals: Katt Emery PA-C [Primary Care Provider] - In 1 week Problem List Clinical Impression: Acute lumbar myofascial strain Patient/Caregiver Discharge Instructions Discharge Activity: activity as tolerated Education Materials: Self-Care for Strains and Sprains, Lumbar Stretch (Flexibility) Additional Instructions: Your pain is caused by strain of your muscle tissue in your back and could sometime press on the nerves. Doing stretching techniques as discussed in your discharge packet as well as not sitting for long periods of time, but taking short walks, applying ice, use medications as directed and hydrating well will help decrease your pain. Try to avoid running, climbing hopping, jumping, kneeling, or squatting for 5- 7 days, and follow with your primary care provider if symptoms do not improve in 5 to 7 days Print Language: [place]ian Stand Alone Forms: [facility] Award Info., Patient Portal Info Letter
[2025-01-24 20:53] LABS: HCG Qualitative,Urine Negative
[2025-01-24 21:45] VITALS: BP 131/86; PULSE 73; RESP 18; TEMP 36.8; O2SAT 96
--- NOTE | 2025-01-24 21:56 | PC.NURSE ---
refused toradol IM. pt discharged
== END 2025-01-24 21:57 | disposition home or self-care (01) ==
PROVIDERS: Physician Assistant; Emergency Provider Emergency Medicine; PCP Physician Assistant
DX: S39.012A Strain of muscle, fascia and tendon of lower back, initial encounter (principal); X50.0XXA Overexertion from strenuous movement or load, initial encounter
CPT/HCPCS: 72100; 81025; 99282